=== PATIENT | female | born 1960 | race Caucasian/White ===

== ENCOUNTER 2023-05-14 20:24 | Emergency (ER) | payer MEDICARE ==
--- OUTSIDE RECORDS SUMMARY | 2023-05-14 20:28 | XMS REPORT | Continuity of Care Document ---
:1960 Author Organization [facility] t Address [address] [facility]. [address] [place] [address] Care Team Providers Name Role Phone HEMALATHA ARNOLD Primary Care Physician Unavailable SHELLY GUILLEN Attending Clinician Unavailable Gonzales Rosario Attending Clinician Unavailable Ken Moctezuma MA Attending Clinician Unavailable Ariadna Rao MD Attending Clinician Alon Fisher MD Attending Clinician Bernie Car Attending Clinician Morelia Cui MA Attending Clinician Unavailable Mariano Jones Attending Clinician Catalina BA, Hemalatha Simpson Attending Clinician Jessica Galindo MA Attending Clinician Unavailable Chaim ENCINAS, Sharon Akbar Attending Clinician Siena BA, Anjali Attending Clinician Mathew RADFORD, Jennifer Attending Clinician Unavailable Gabby BA, Anjelica Lee Attending Clinician [phone] Timothy Amador Attending Clinician Nikki BA, Oscar Attending Clinician Jacquelin Bower Attending Clinician Unavailable Jacquelin Horner Attending Clinician Hunstar_Laura Attending Clinician Unavailable Felipa BA, Fabian Loya Attending Clinician [phone] Kenny TOMBSTONE ERECTOR HELPER, Becky Vance Attending Clinician [phone] ANJELICA ART Attending Clinician Unavailable Provider, Yael Vallecillo Attending Clinician Unavailable JANNETTE TODD Attending Clinician Unavailable DELORIS SAMANIEGO Attending Clinician Unavailable GURVINDER BEVERLY Attending Clinician Unavailable Ajibade_O_AH Attending Clinician Unavailable SHELLY GUILLEN Admitting Clinician Unavailable Physician, No Primary or Family Admitting Clinician Unavaila ARIADNA Glez Admitting Clinician Unavailable Hunt_A Admitting Clinician Unavailable GURVINDER BEVERLY Admitting Clinician Unavailable Ajibade_O_AH Admitting Clinician Unavailable Payers Payer Name Policy Type Policy Number Effective Date Expiration Date S ivana [employer] [place] [id number] 2019 CLASSIC/VALUE 00:00:00 REPLACED BY [facility] [id number] 2022 (MEDICARE 00:00:00 REPLACEMENT HMO) [place] OF [place] - [id number] [place] (MEDICARE 00:00:00 REPLACEMENT/[place] GE - HMO) Problems Condition Condition Condition Status Onset Resolution Last Treating Co mments Source Name Details Category Date Date Treatment Clinician Date Lumbar Lumbar Disease Active 2022-06 [facility]i spondylosi spondylosi 0-06 st s s 00:00: Hospita 00 l Acquired Acquired Disease Active Metho di hypothyroi hypothyroi 02-13 st dism dism 00:00: Hospita 00 l Other Other Disease Active Methodi spondylosi spondylosi [address] st s with s with 00:00: Hospita radiculopa radiculopa 00 l thy, thy, lumbar lumbar region region Subclinica Subclinica Disease Active 2021-06 Overview : Methodi l l 0-[address] hypothyroi hypothyroi 00:00: g of this Hospita dism dism 00 note l might be different from the original. TSH elevated, low normal free t4; normalT3 and TPO ab negative Mixed Mixed Disease Active Methodi hyperlipid hyperlipid - st emia emia 00:00: Hospita 00 l Anterolist Anterolist Disease Active Overview : Methodi hesis of hesis of 3- Formattin [facility] lumbar lumbar 00:00: g of this Hospita spine spine 00 note l might be different from the original. on xray trace grade 1 of L3 on L4 Epidermal Epidermal Disease Active 2017-06 Overview: Methodi inclusion inclusion 07-22 Formatt[address] s t cyst cyst 00:00: g of this Hospita 00 note l might be different from the original. right buttock; s/p excision 8 Encounter Encounter Disease Active 2017-06 Overview: Methodi for for 0-[address] screening screening 00:00: g of this H ospita for for 00 note l malignant malignant might be neoplasm neoplasm different of colon of colon from the original. Formattin g of this note might be different from the original. Added automatic ally from request for surgery [id number] matting of this note might be different from the original. Added automatic ally from request for surgery [id number] History of History of Disease Active 2017-06 Overview : Methodi colon colon 0-[address] polyps polyps 00:00: g of this Hospita 00 note l might be different from the original. Formattin g of this note might be different from the original. Added automatic ally from request for surgery [id number] Obesity Obesity Disease Active Methodi (BMI (BMI 7-11 st 30-39.9) 30-39.9) 00:00: Hospit a 00 l SBO (small SBO (small Disease Active 2015-06 Overview : Methodi bowel bowel 1-[address] obstructio obstructio 00:00: g of this Hospita n) n) 00 note l might be different from the original. Overview: hospitali zed at [facility] Mucinous Mucinous Disease Active Metho di cystadenom cystadenom 2-02 st a of a of 00:00: Hospita ovary, ovary, 00 l left left Hip pain Hip pain Disease Active Metho di 30 st 00:00: Hospita 00 l Cataracts, Cataracts, Disease Active 2013-06 M ethodi bilateral bilateral 0-13 st 00:00: Hospita 00 l Tubular Tubular Disease Active Overview: Meth alvina adenoma of adenoma of 7-[address] colon colon 00:00: g of this Hospita 00 note l might be different from the original. Overview: on colonosco py DJD DJD Disease Active Overview: Method i (degenerat (degenerat -[address] asaf joint asaf joint 00:00: g of this H ospita disease), disease), 00 note l lumbar lumbar might be different from the original. Overview: on xray Tobacco Tobacco Disease Active Methodi use use 03-22 st 00:00: Hospita 00 l Pulmonary Pulmonary Disease Active Overview: Methodi emphysema emphysema 03-09 Formattin s t 00:00: g of this Hospita 00 note l might be different from the original. Overview: moderate on ct scan at [place] [address] Diagnosis Term Garbage Person Utility CHF CHF Disease Active Overview: Method i (congestiv (congestiv -[address] e heart e heart 00:00: g of this Hospi ta failure) failure) 00 note l might be different from the original. TTE with low EF 45-50% Leiomyoma Leiomyoma Disease Active Overview: Methodi of uterus of uterus 01-29 Formattin s t 00:00: g of this Hospita 00 note l might be different from the original. small fibroid in uterus on usg Chronic Chronic Disease Active Methodi schizoaffe schizoaffe 5-07 st ctive ctive 00:00: Hospita disorder disorder 00 l Abnormal Abnormal Disease Active Overview: Me thodi results of results of 3-[address] thyroid thyroid 00:00: g of this Hospi ta function function 00 note l studies studies might be different from the original. thyroid nuclear scan normal 12/02/08 Symptomati Symptomati Disease Active M ethodi c c 9-08 st menopausal menopausal 00:00: Ho spita or female or female 00 l climacteri climacteri c states c states Depressive Depressive Disease Active Overview : Methodi disorder disorder 03-[address] 00:00: g of this Hospita 00 note l might be different from the original. Overview: ICD10 Diagnosis Term [employer] Utility Hepatitis Hepatitis Disease Active Overview: Methodi C virus C virus 03-[address] infection infection 00:00: g of this H ospita without without 00 note l hepatic hepatic might be coma coma different from the original. Overview: ICD10 Diagnosis Term [employer] Utility Paranoid Paranoid Disease Active Metho di schizophre schizophre [facility] l Bronchitis Bronchitis Disease Active Overview : Methodi Formattin st g of this Hospita note l might be different from the original. [place] chemical [place] and irritates her lungs and sometimes associate d with morning cough Allergies, Adverse Reactions, Alerts Allergy Allergy Status Severity Reaction(s) Onset Inactive Treating Comm ents Source Name Type Date Date Clinician Diphenhy Propensi Active Other (See 2022-06 Full body Methodi dramine ty to Comments) 07-[address] Hcl adverse 00:00: Hospita reaction 00 l s to drug Hydromor Propensi Active Itching 2021-06 Metho di phone ty to 08-01 st adverse 00:00: Hospita reaction 00 l s to drug FISH Drug Active N/V Univers CONTAINI Class - ity of NG 00:00: [place] PRODUCTS 00 [facility] SHELLFIS DRUG Active N/V Univers H INGREDI 12-15 ity of DERIVED 00:00: Medical Branch Fish Propensi Active GI Methodi Containi ty to Intolerance 12-15 st ng adverse 00:00: Hospita Products reaction 00 l s to drug Shellfis Propensi Active GI Says Method i h ty to Intolerance 12-[address] Derived adverse 00:00: [place] Hospita reaction 00 l s to drug HYDROMOR DRUG Active ITCHING Univers PHONE 12-14 ity of (BULK) 00:00: [place] 00 [facility] MORPHINE DRUG Active ITCHING Univers INGREDI 12-14 ity of 00:00: [place] 00 [facility] Morphine Propensi Active Itching Metho di ty to 12-14 st adverse 00:00: Hospita reaction 00 l s to drug ADHESIVE DA Active SV [facility] 2014-06 [facility] TAPE 0-31 [facility] meperidi DA Active SV 2014-06 [facility] ne HCl 0-25 [facility] hydrocod DA Active [place] 2014-06 [facility] one bit 0-25 [facility] 00:[facility]: d [facility] propoxyp DA Active SV 2014-06 [facility] hene HCl 0-25 [facility] 00:[facility]: d [facility] phenytoi DA Active SV 2014-06 [facility] n sodium 0-25 [facility] 00:00: d 00 [facility] codeine DA Active [place] 2014-06 [facility] 0-25 [place] 00:00: d 00 [facility] risperid DA Active SV 2014-06 [facility] one 0-25 [facility] 00:00: d 00 [facility] meperidi DA Active SV THROAT 2014-06 [facility] ne HCl SWELLS 0-25 [facility] 00:00: d 00 [facility] hydrocod DA Active [place] ITCHING 2014-06 [facility] one bit 0-25 [facility] 00:00: d 00 [facility] propoxyp DA Active SV RUN HIGH 2014-06 [facility] hene HCl FEVERS 0-25 [facility] 00:[facility]: d [facility] phenytoi DA Active SV THROAT 2014-06 [facility] n sodium SWELLS 0-25 [facility] 00:00: d 00 [facility] codeine DA Active [place] ITCHING 2014-06 [facility] 0-25 [facility] 00:[facility]: d 00 [facility] risperid DA Active SV RUN HIGH 2014-06 [facility] one FEVER 0-25 [facility] 00:[facility]: d [facility] CODEINE DRUG Active Hives 2008-0 Univers INGREDI 4-21 ity of 00:00: [place] 00 [facility] Codeine Propensi Active Hives 2007-0 Methodi ty to 4 st adverse 00:00: Hospita reaction 00 l s to drug HYDROCOD DRUG Active High ITCHING 2006-0 Univers ONE-ACET 1-11 ity of AMINOPHE 00:00: [place] N 00 [facility] Branch Hydrocod Propensi Active Itching 2006-0 "PT Metho di one-Acet ty to 1-[address] aminophe adverse 00:00: SEVERE" Hospit a n reaction 00 l s to drug PROPOXYP DRUG Active Med Rash 2006-0 Univers HENE HCL INGREDI 03-03 ity of 00:00: [place] 00 [facility] MEPERIDI DRUG Active Med Hives 2005-0 Univers NE HCL INGREDI 03-03 ity of 00:00: 00 Medical Branch PHENYTOI DRUG Active Med Anaphylaxis 2005-0 Uni vers N SODIUM INGREDI 03-03 ity of EXTENDED 00:00: [place] 00 [facility] RISPERID DRUG Active Med ITCHING 2005-0 Univers ONE INGREDI 03-03 ity of 00:00: 00 [facility] Branch Meperidi Propensi Active Hives 2005-0 Method i ne Hcl ty to 03-03 st adverse 00:00: Hospita reaction 00 l s to drug Phenytoi Propensi Active Anaphylaxis 2005-0 M ethodi n Sodium ty to 03-03 st Extended adverse 00:00: Hospita reaction 00 l s to drug Propoxyp Propensi Active Rash Method i hene Hcl ty to 03-03 adverse 00:00: Hospita reaction 00 l s to drug Risperid Propensi Active Itching 2005- Metho di one ty to 03-03 adverse 00:00: Hospita reaction 00 l s to drug Family History Family Member Diagnosis Comments Start Date Stop Date Source Natural daughter [facility] father Diabetes [facility] father Heart disease [facility] Natural father Lung cancer [facility] father Mental illness Method [facility] Maternal grandfather Lung cancer [facility] mother Asthma [facility] mother Depression [facility] mother Heart defect [facility] mother Lung cancer [facility] Paternal aunt Cancer [facility] ospital [facility] sister Depression [facility] Social History Social Habit Start Date Stop Date Quantity Comments Source History of tobacco Smokes tobacco [facility] use daily Hospital Sexual orientation Method [facility] Alcohol intake 2023-05-05 2023-05-05 Current Muslim 00:00:00 00:00:00 non-drinker of Hospital alcohol (finding) History of Social 2023-05-05 2023-05-[address] function 00:00:00 00:00:00 Hospital Tobacco use and 2022-10-31 2022-10-31 Smokeless tobacco Me thodist exposure 00:00:00 00:00:00 non-user Hospital Tobacco Comment 2022-10-13 2022-10-13 Started smoke Method ist 00:00:00 00:00:00 frequently at Hospital 16yrs old Sex Assigned At [birth year] F Muslim 00:0000 00:00:00 Hospital Smoking Status Start Date Stop Date Source Smokes tobacco daily 2022-10-31 [facility] Medications Ordered Filled Start Stop Current Ordering Indication Dosage Frequency Signature Comments Components Source Medication Medication Date Date Medication? Clinician (SIG) Name Name venlafaxine 2022-06 Yes 150mg Take 2 Met hodi XR 1-[address] (EFFEXOR-XR 14:30: (150 mg Hos alfred ) 75 MG 24 36 total) by l hr capsule mouth. OLANZapine 2022-06 Yes 7.5mg QD Take 1.5 Me thodi (ZYPREXA) 5 1-[address] MG tablet 14:30: (7.5 mg Hospi ta 36 total) by l mouth nightly. venlafaxine 2022-06 Yes 150mg QD Take 1 Met hodi XR 1-[address] (EFFEXOR-XR 14:30: (150 mg Hos alfred ) 150 MG 24 36 total) by l hr capsule mouth daily. HYDROXYZINE 2022-06 No Take by Me thodi PAMOATE 0-25 10-[address] ORAL 11:15: 00:00 Hospita 01 :00 l albuterol 2022-06 Yes [id number] 2{puff} Q6H Inhale 2 Methodi (Ventolin 0-[address] HFA) 90 00:00: every 6 Hospita mcg/actuati 00 (six) l on inhaler hours as needed for wheezing. loratadine 2022-06- Yes [id number] 10mg QD Take 1 Methodi (Claritin) 0-11 10-11 tablet (10 st 10 mg 00:00: 04:59 mg total) Hospit a tablet 00 :00 by mouth l daily. Otc pregabalin 2022-06- No 25mg Q.5D TAKE ONE Me thodi (LYRICA) 25 0-10 10-17 (1) st MG capsule 00:00: 00:00 CAPSULE(S) Hospita 00 :00 BY MOUTH l TWICE A DAY. Unithroid Yes [id number] 100ug QD Take 1 Methodi 100 mcg 8-[address] tablet 00:00: (100 mcg Hospita 00 total) by l mouth daily. Brand necessary pregabalin 2022- No 25mg Q.5D Take 1 Meth alvina (Lyrica) 25 6-13 07-[address] MG capsule 00:00: 04:59 (25 mg Hosp kyle 00 :00 total) by l mouth 2 (two) times a day for 30 days. pregabalin 2022- No 100mg Q.5D Take 1 Met hodi (Lyrica) 5-08 06-[address] 100 MG 00:00: 00:00 (100 mg Hospita capsule 00 :00 total) by l mouth 2 (two) times a day for 30 days. lidocaine 2022- No 1{patch QD Place 1 M ethodi (LIDODERM) 10-20 } patch on st 5 % 00:00: 04:59 the skin Hospita 00 :00 daily for l 30 days. Remove & Discard patch within 12 hours or as directed by levothyroxi 2022- No [id number] 25ug QD Take 1 Methodi ne 3-29 08-30 tablet (25 st (SYNTHROID) 00:00: 00:00 mcg total) Hospita 25 mcg 00 :00 by mouth l tablet daily. levothyroxi 2021-06- No [id number] 25ug QD Take 1 Methodi ne 1-07 03-29 tablet (25 st (SYNTHROID) 00:00: 00:00 mcg total) Hospita 25 mcg 00 :00 by mouth l tablet daily. meloxicam 2021-06 Yes [id number] 7.5mg QD Take 1 Methodi (MOBIC) 7.5 0-[address] mg tablet 00:00: (7.5 mg Hospi ta 00 total) by l mouth daily. amitriptyli 2022- No [id number] 25mg QD TAKE 1 Methodi ne (ELAVIL) 6-18 10-24 TABLET (25 s t 25 MG 00:00: 00:00 MG TOTAL) Hospit a tablet 00 :00 BY MOUTH l NIGHTLY. diclofenac 2022- No [id number] 2g Q.25D Apply 2 g Methodi (Voltaren) 3-22 06-[address] 1 % gel 00:00: 00:00 4 (four) Hospi ta 00 :00 times a l day as needed (left lower back pain). lactulose 2020-06 Yes [id number] 20g Q.[id number] Take 30 mL Methodi (CHRONULAC) 0-19 [id number] (20 g s t 10 gram/15 00:00: 3D total) by Ho spita mL solution 00 mouth 3 l (three) times a day as needed (constipat ion). albuterol 2022- No [id number] 2{puff} Q6H Inhale 2 Methodi (Ventolin 4-07 08-[address] HFA) 90 00:00: 00:00 every 6 Hospit a mcg/actuati 00 :00 (six) l on inhaler hours as needed for wheezing. ipratropium Yes [id number] 3mL Q6H M ethodi -albuterol 7-15 st (DUO-NEB) 20:50: Hospita 0.5-2.5 00 l mg/3 mL nebulizer solution 3 mL divalproex 2017-06 Yes 250mg Q.5D 1 tablet Me thodi (DEPAKOTE) 1-13 ([address] 250 MG EC 00:00: total) 2 Hosp kyle tablet 00 (two) l times a day. Taking 2 pill at night traZODone Yes 100mg Take 2 Metho di (DESYREL) 5-[address] 50 MG 00:00: (100 mg Hospita tablet 00 total) by l mouth. Immunizations Ordered Immunization Filled Immunization Date Status Commen ts Source Name Name Influenza Trivalent Unknown Completed [facility] Influenza, Unknown Completed [facility] Pneumococcal Unknown Completed Muslim Conjugate 13-Valent Hospi mauro Vital Signs Vital Name Observation Time Observation Value Comments Source Systolic blood 2023-05-02 13:51:00 155 mm[Hg] Method ist Hospital pressure Diastolic blood 2023-05-02 13:51:00 74 mm[Hg] [facility] Hospital pressure Heart rate 2023-05-02 13:51:00 78 /min Methodis t Hospital Respiratory rate 2023-05-02 13:51:00 22 /min Meth odist Hospital Oxygen saturation in 2023-05-02 13:51:00 99 /min [facility] Arterial blood by Pulse oximetry Body temperature 2023-05-02 12:21:00 36.78 Irina Meth [facility] Body height 2023-05-02 12:21:00 157.5 cm [facility] Body weight 2023-05-02 12:21:00 86.864 kg [facility] BMI 2023-05-02 12:21:00 35.03 kg/m2 [facility] Procedures Procedure Date / Time Performing Clinician Source Performed OR [place] < 1 HOUR 2023-05-02 13:28:00 [facility], 2023-05-02 [facility] LUMBAR OR SACRAL, SINGLE LEVEL OR FL < 1 HOUR 2023-04-18 15:51:00 [facility] BLOCK, FACET JOINT, 2023-04-18 15:36:00 [facility] SPINE, LUMBAR OR SACRAL, SINGLE LEVEL CT HEAD WO CONTRAST 2023-03-16 20:05:[address] [facility] [address] CARDIAC CALCIUM SCORE 2023-03-16 19:20:00 [facility] US CAROTID DUPLEX 2023-03-16 18:27:00 [facility] BILATERAL CV HOLTER MONITOR GREATER 2023-03-15 00:00:00 [facility] THAN 48 HOUR ECG 12-LEAD 2023-03-02 16:21:55 [facility] LIPID PANEL 2023-02-13 16:21:00 [facility] THYROID STIMULATING 2023-02-13 16:21:00 [facility] HORMONE T4, FREE 2023-02-13 16:21:00 [facility] OR FL < 1 HOUR 2022-12-06 13:27:00 [facility] INJECTION, EPIDURAL, 2022-12-06 13:18:00 [facility] SPINE, LUMBAR, TRANSFORAMINAL APPROACH XR SPINE SCOLIOSIS 2-3 2022-10-31 16:19:55 [place], [facility]se[facility] VIEWS CBC WITH PLATELET AND 2022-10-11 20:54:00 [facility] DIFFERENTIAL COMPREHENSIVE METABOLIC 2022-10-11 20:54:00 [facility], [facility] PANEL LIPID PANEL 2022-10-11 20:54:00 [facility], [facility] THYROID STIMULATING 2022-10-11 20:54:00 [facility] HORMONE T4, FREE 2022-10-11 20:54:00 [facility] ESTIMATED GFR 2022-10-11 20:54:00 [facility], [facility] ECG 12-LEAD 2022-10-11 20:42:52 [facility], [facility] OR FL < 1 HOUR 2022-09-06 12:52:00 [facility], [facility] INJECTION, SPINE, LUMBAR, 2022-09-06 12:44:00 Colmenter, [facility] EPIDURAL, INTERLAMINAR APPROACH OR FL < 1 HOUR 2022-05-31 14:45:00 Colmenter, [facility] INJECTION, SPINE, LUMBAR, 2022-05-31 14:33:00 Col[facility], [facility] EPIDURAL, INTERLAMINAR APPROACH ECG 12-LEAD 2022-05-31 13:49:01 Fabian Leo [facility] Plan of Care Planned Activity Planned Date Details Comments Source Future Scheduled 2023-05-12 Screening for Muslim Test 04:57:46 malignant neoplasm of Hospit al colon (procedure) [code = 038021169] Future Scheduled 2023-05-12 Screening for Muslim Test 04:57:46 malignant neoplasm of Hospit al colon (procedure) [code = 186599541] Future Scheduled 2023-05-12 Screening for Muslim Test 04:57:46 malignant neoplasm of Hospit al colon (procedure) [code = 794582846] Future Scheduled 2023-05-12 COVID-19 VACCINE (#1) [facility]ist Test 04:57:46 [code = COVID-19 Hospital VACCINE (#1)] Future Scheduled 2023-05-12 BREAST CANCER Muslim Test 04:57:46 SCREENING [code = Hospital BREAST CANCER SCREENING] Future Scheduled 2023-05-12 Pneumococcal Vaccine: Me thodist Test 04:57:46 Pediatrics (0 to 5 Hospital Years) and At-Risk Patients (6 to 64 Years) (2 - PPSV23 or PCV20) [code = Pneumococcal Vaccine: Pediatrics (0 to 5 Years) and At-Risk Patients (6 to 64 Years) (2 - PPSV23 or PCV20)] Future Scheduled 2023-05-12 HEPATITIS B VACCINES Met hodist Test 04:57:46 (1 of 3 - Risk 3-dose Hospit al series) [code = HEPATITIS B VACCINES (1 of 3 - Risk 3-dose series)] Future Scheduled 2023-05-12 Screening for Muslim Test 04:57:46 malignant neoplasm of Hospit al colon (procedure) [code = 221204635] Future Scheduled 2023-05-12 Screening for Muslim Test 04:57:46 malignant neoplasm of Hospit al colon (procedure) [code = 930865355] Future Scheduled 2023-05-12 Screening for Muslim Test 04:57:46 malignant neoplasm of Hospit al cervix (procedure) [code = 146637598] Future Scheduled 2023-05-12 SHINGLES VACCINES (1 Postponed from M ethodist Test 04:57:46 of 2) [code = 2010 Hospital SHINGLES VACCINES (1 (Patient of 2)] Refused) Future Scheduled 2023-05-12 INFLUENZA VACCINE Postponed from Meth odist Test 04:57:46 (#1) [code = 02/24/2023 Hospital INFLUENZA VACCINE (Patient (#1)] Refused) Future Appointment 2023-05-16 Ariadna Rao MD, Muslim 10:49:[address] [place] [address] Hospit [address] [place] [address] Future Appointment 2023-05-16 Ariadna Rao MD, Muslim 10:49:[address] [place] [address] Hospit [address] [place] [address] Procedure 2023-05-16 RADIOFREQUENCY Muslim 16:49:00 ABLATION,LUMBAR Hospital Encounters Start End Encounter Admission Attending Care Care Encounter Source Date/Time Date/Time Type Type Clinicians Facility Department ID 2021-04-25 Outpatient R [facility] FILI [id number] Univers 18:13:[address] [facility] [place] 2021-04-23 Emergency [facility] [id number] Univers 11:06:[address] [facility] [place] 2021-04-23 Emergency [facility] [id number] Univers 05:22:53 [facility] 2020-08-04 Inpatient ALEXYS Roasrio [facility] [id number] [facility] 14:31:[address] 2023-05-03 2023-05-03 Telephone Rhianna, 1.2.840.1 [id number] Methodi 00:00:00 00:00:[id number] 3.430.2.7 Hospit a .3.376375 l .8 2023-05-02 2023-05-02 Hospital Colmenter, 1.2.840.1 [id number] Methodi 06:05:00 09:40:00 Encounter Ariadna [id number] 3.430.2.7 Hospit a .3.794328 l .8 2023-05-02 2023-05-02 Surgery Colmenter, 1.2.840.1 [id number] Methodi 07:15:00 07:34:[id number] 3.430.2.7 Hospit a .3.486214 l .8 2023-05-02 2023-05-02 Anesthesia Alon Fisher W. 1.2.840.1 [id number] Methodi 07:13:00 07:31:00 Event Bernie Car My Angeline [id number] 3.430.2.7 Hospit a .3.980660 l .8 2023-05-02 2023-05-[address] [facility] 021 [id number] Wray 00:00:00 00:00:[address] ARIADNA [address] 2023-04-19 2023-04-19 Telephone Basilia, 1.2.840.1 [id number] Methodi 00:00:00 00:00:[id number] 3.430.2.7 Hospit a .3.733894 l .8 2023-04-18 2023-04-18 Hospital Colmenter, 1.2.840.1 [id number] Methodi 09:02:00 11:15:00 Encounter Ariadna [id number] 3.430.2.7 Hospit a .3.146173 l .8 2023-04-18 2023-04-18 Surgery Colmenter, 1.2.840.1 [id number] 872 [id number] Methodi 10:41:00 11:00:[address] 3.430.2.7 Hospit a .3.312249 l .8 2023-04-18 2023-04-18 Anesthesia Karen, 1.2.840.1 [id number] 21 [id number] Methodi 10:36:00 10:53:[address] Mariano 26986.1.[address] Ibll 3.430.2.7 Hospit a .3.028802 l .8 2023-04-18 2023-04-[address] [facility] [place] [id number] 2099 [id number] Wray 00:00:00 00:00:00 ARIADNA [address] 2023-04-05 2023-04-05 Telemedici BelcherBrooke, 1.2.840.1 [id number] Methodi 11:20:00 13:09:16 césar Simpson 44858.1.[address] 3.430.2.7 Hospit a .3.635787 l .8 2023-04-05 2023-04-05 [facility] 2099 [id number] Wray 00:00:00 00:00:00 HEMALATHA [address] 2023-04-04 2023-04-04 Refill Colmenter, 1.2.840.1 [id number] 765 [id number] Methodi 00:00:00 00:00:[address] 3.430.2.7 Hospit a .3.835445 l .8 2023-03-31 2023-03-31 Prep for Josie, 1.2.840.1 [id number] 13373 Methodi 00:00:00 00:00:00 Surgery Jessica 74691.1.[address] 3.430.2.7 Hospit a .3.467197 l .8 2023-03-30 2023-03-30 Office Rucker, 1.2.840.1 [id number] 0502 Methodi 13:30:00 15:12:21 Visit Sharon Akbar 64670.1.1 879 s t 3.430.2.7 Hospit a .3.083076 l .8 2023-03-30 2023-03-30 Outpatient [facility] [id number] Wray 00:00:00 00:00:[address] 2023-03-25 2023-03-25 [facility], 1.2.840.1 [id number] 21 [id number] Methodi 00:00:00 00:00:00 Only Ahmed 04428.1.[address] 3.430.2.7 Hospit a .3.768871 l .8 2023-03-16 2023-03-16 [facility], 1.2.840.1 [id number] 2 [id number] Methodi 12:31:34 23:59:00 Encounter Ahmed 04933.1.[address] 3.430.2.7 Hospit a .3.917847 l .8 2023-03-16 2023-03-16 [facility], 1.2.840.1 [id number] 2 [id number] Methodi 12:31:03 23:59:00 Encounter Ahmed 01883.1.[address] 3.430.2.7 Hospit a .3.377746 l .8 2023-03-16 2023-03-16 [facility], 1.2.840.1 [id number] 2 [id number] Methodi 12:28:51 12:30:00 Encounter Ahmed 66876.1.[address] 3.430.2.7 Hospit a .3.694185 l .8 2023-03-16 2023-03-16 Outpatient SIENA, [facility] 170 [id number] Wray 00:00:00 00:00:00 AHMED [address] 2023-03-16 2023-03-16 Outpatient SIENA, [facility] 642 [id number] Wray 00:00:00 00:00:00 AHMED [address] 2023-03-16 2023-03-16 Outpatient SIENA, [facility] 871 [id number] Wray 00:00:00 00:00:00 AHMED [address] 2023-03-15 2023-03-15 Orders Siena, 1.2.840.1 [id number] 21 [id number] Methodi 00:00:00 00:00:00 Only Ahmed 88976.1.[address] 3.430.2.7 Hospit a .3.128788 l .8 2023-03-02 2023-03-02 Office Siena, 1.2.840.1 [id number] 21 [id number] Methodi 11:00:00 12:19:09 Visit Ahmed 21384.1.[address] 3.430.2.7 Hospit a .3.960292 l .8 2023-03-02 2023-03-02 Outpatient SIENA, [facility] 861 [id number] Wray 00:00:00 00:00:00 AHMED [address] 2023-02-22 2023-02-22 Telemedici Catalina, 1.2.840.1 [id number] Methodi 08:00:00 08:34:19 césar Simpson 69804.1.[address] 3.430.2.7 Hospit a .3.280548 l .8 2023-02-22 2023-02-22 Outpatient [facility] [id number] 170 Wray 00:00:00 00:00:[address] 2023-01-30 2023-01-30 Braydon Carmona, 1.2.840.1 [id number] 2100 [id number] Methodi 00:00:00 00:00:[address] 3.430.2.7 Hospit a .3.569454 l .8 2023-01-26 2023-01-26 Telephone Catalina, 1.2.840.1 [id number] 2 [id number] Methodi 00:00:00 00:00:00 Hemalatha Simpson 56724.1.[address] 3.430.2.7 Hospit a .3.382475 l .8 2023-01-09 2023-01-09 Telephone Mathew, 1.2.840.1 [id number] 2100 [id number] Methodi 00:00:00 00:00:[address] 3.430.2.7 Hospit a .3.541405 l .8 2022-12-06 2022-12-06 Hospital Col[facility]er, 1.2.840.1 [id number] 21 [id number] Methodi 07:15:00 09:10:00 Encounter Ariadna 13010.1.[address] 3.430.2.7 Hospit a .3.023384 l .8 2022-12-06 2022-12-06 Surgery Colmenter, 1.2.840.1 [id number] 732 [id number] Methodi 08:14:00 08:38:[address] 3.430.2.7 Hospit a .3.629037 l .8 2022-12-06 2022-12-06 Anesthesia McInroe, 1.2.840.1 [id number] 21 [id number] Methodi 08:18:00 08:30:00 Event Anjelica 01934.1.[address] Jesus 3.430.2.7 Hospit a .3.082003 l .8 2022-12-06 2022-12-06 Orders Colmenter, 1.2.840.1 [id number] 023 [id number] Methodi 00:00:00 00:00:00 Only Ariadna 88578.1.[address] 3.430.2.7 Hospit a .3.892683 l .8 2022-12-06 2022-12-06 Outpatient COLMENTER, [facility] 021 2099 [id number] Wray 00:00:00 00:00:00 ARIADNA [address] 2022-11-28 2022-11-28 Prep for Galindo, 1.2.840.1 [id number] 82129 63040 Methodi 00:00:00 00:00:00 Surgery Jessica 96200.1.[address] 3.430.2.7 Hospit a .3.809049 l .8 2022-11-07 2022-11-07 Orders Villyard, 1.2.840.1 [id number] 2099 [id number] Methodi 00:00:00 00:00:00 Only Morelia 99033.1.[address] 3.430.2.7 Hospit a .3.161918 l .8 2022-10-31 2022-10-31 Office Edrebecca, 1.2.840.1 [id number] 2100 [id number] Methodi 11:00:00 14:33:59 Visit Eseohe 34125.1.[address] 3.430.2.7 Hospit a .3.609468 l .8 2022-10-31 2022-10-31 Outpatient [facility] [id number] Wray 00:00:00 00:00:[address] 2022-10-31 2022-10-31 Refill José, 1.2.840.1 [id number] 2100 [id number] Methodi 00:00:00 00:00:[address] 3.430.2.7 Hospit a .3.134097 l .8 2022-10-31 2022-10-31 Travel 1.2.840.1 1.2.190.365 5767 [id number] Methodi 00:00:00 00:00:[address] 3.430.2.7 0.2.7.3.698 Ho spita .3.964622 084.8 l .8 2022-10-31 2022-10-31 Outpatient [facility] [id number] Wray 00:00:00 00:00:[address] 2022-10-31 2022-10-31 Outpatient [facility] [id number] Wray 00:00:00 00:00:[address] 2022 2022 Telephone Nikki, 1.2.840.1 [id number] 2099 [id number] Methodi 00:00:00 00:00:[address] 3.430.2.7 Hospit a .3.590970 l .8 2022-10-20 2022-10-20 Office Colmenter, 1.2.840.1 [id number] 446 [id number] Methodi 10:20:00 10:59:37 Visit Ariadna 07153.1.[address] 3.430.2.7 Hospit a .3.999359 l .8 2022-10-20 2022-10-20 Telephone Catalina, 1.2.840.1 [id number] 2 [id number] Methodi 00:00:00 00:00:[address] 3.430.2.7 Hospit a .3.290634 l .8 2022-10-20 2022-10-20 Travel 1.2.840.1 1.2.894.678 1992 [id number] Methodi 00:00:00 00:00:[address] 3.430.2.7 0.2.7.3.698 Ho spita .3.802553 084.8 l .8 2022-10-20 2022-10-20 [facility] 2100 [id number] Wray 00:00:00 00:00:00 ARIADNA [address] 2022-10-17 2022-10-17 Telephone Bower, 1.2.840.1 [id number] 2099 [id number] Methodi 00:00:00 00:00:[address] 3.430.2.7 Hospit a .3.114673 l .8 2022-10-11 2022-10-11 Lab Catalina, 1.2.840.1 [id number] 718 [id number] Methodi 15:55:00 16:00:[address] 3.430.2.7 Hospit a .3.664364 l .8 2022-10-11 2022-10-11 Office Catalina, 1.2.840.1 [id number] 535 [id number] Methodi 14:20:00 15:51:33 Visit Hemalatha Meneses. 11210.1.[address] 3.430.2.7 Hospit a .3.356668 l .8 2022-10-11 2022-10-11 [facility] 2100 [id number] Wray 00:00:00 00:00:00 HEMALATHA [address] 2022-10-11 2022-10-11 [facility] 2100 [id number] Wray 00:00:00 00:00:00 HEMALATHA [address] 2022-09-27 2022-09-27 Travel 1.2.840.1 1.2.782.727 9846 [id number] Methodi 00:00:00 00:00:[address] 3.430.2.7 0.2.7.3.698 Ho spita .3.051544 084.8 l .8 2022-09-21 2022-09-21 Luis Carmona, 1.2.840.1 [id number] 324189 9537 Methodi 00:00:00 00:00:00 Only Jennifer 66815.1.[address] 3.430.2.7 Hospit a .3.426258 l .8 2022-09-19 2022-09-19 MARISOL Horner 2.16.840. 2.16.840.1. CLACXJJUZF Devoted 18:00:00 19:00:00 1.864241. 723404.4.6. W48 Medical 4.6.13124 [id number] 16119 2022-09-14 2022-09-14 Outpatient Hunt_A [facility] 702871- 202 Devoted 00:00:00 00:00:00 90226 Medica l Group 2022-09-14 2022-09-14 Outpatient Hunt_A [facility] 898172- 202 Devoted 00:00:00 00:00:00 00349 Medica l Group 2022-09-06 2022-09-06 Hospital Colmenter, 1.2.840.1 [id number] 21 [id number] Methodi 06:11:00 08:35:00 Encounter Ariadna 92459.1.[address] 3.430.2.7 Hospit a .3.649329 l .8 2022-09-06 2022-09-06 Anesthesia Felipa, 1.2.840.1 [id number] 21 [id number] Methodi 07:43:00 07:58:00 Event Christopher 83939.1.[address] Vincenzo 3.430.2.7 Hospit a .3.369958 l .8 2022-09-06 2022-09-06 Surgery Colmenter, 1.2.840.1 [id number] 676 [id number] Methodi 07:37:00 07:57:[address] 3.430.2.7 Hospit a .3.723858 l .8 2022-09-06 2022-09-06 Outpatient COLMENTER, [facility] 021 2100 [id number] Wray 00:00:00 00:00:00 ARIADNA [address] 2022-09-02 2022-09-02 Prep for Galindo, 1.2.840.1 [id number] 81945 89638 Methodi 00:00:00 00:00:00 Surgery Jessica 84462.1.[address] 3.430.2.7 Hospit a .3.128773 l .8 2022-09-02 2022-09-02 [facility] [place], 1.2.840.1 [id number] 21 [id number] Methodi 00:00:00 00:00:[address] 3.430.2.7 Hospit a .3.114123 l .8 2022-08-19 2022-08-19 Outpatient [facility] [place] 807860- 202 Devoted 00:00:00 00:00:00 26726 Medica l Group 2022-08-18 2022-08-18 Office Colmenter, 1.2.840.1 [id number] 155 [id number] Methodi 10:00:00 10:40:31 Visit Ariadna 05841.1.[address] 3.430.2.7 Hospit a .3.364979 l .8 2022-08-18 2022-08-18 Telephone BelcherBrooke, 1.2.840.1 [id number] 2 [id number] Methodi 00:00:00 00:00:00 Hemalatha Simpson 88057.1.[address] 3.430.2.7 Hospit a .3.379555 l .8 2022-08-18 2022-08-[address] [facility], [facility] 2100 [id number] Wray 00:00:00 00:00:00 ARIADNA [address] 2022-07-30 2022-07-30 Outpatient DMG DM [id number]- 202 Devoted 00:00:00 00:00:00 56506 Medica l Group 2022-07-19 2022-07-19 Outpatient DMG DM [id number]- 202 Devoted 00:00:00 00:00:00 60994 Medica l Group 2022-06-21 2022-06-[facility] [id number] 0114 Methodi 15:45:00 15:47:27 Visit Becky 82000.1.[address] [facility] 3.430.2.7 Hospi ta .3.007649 l .8 2022-06-21 2022-06-21 Travel 1.2.840.1 1.2.898.419 5223 [id number] Methodi 00:00:00 00:00:[address] 3.430.2.7 0.2.7.3.698 Ho spita .3.973176 084.8 l .8 2022-06-21 2022-06-21 Outpatient [facility] [id number] Wray 00:00:00 00:00:[address] 2022-05-31 2022-05-31 Hospital [facility], 1.2.840.1 [id number] 21 [id number] Methodi 07:14:00 23:59:00 Encounter Ariadna 82439.1.[address] 3.430.2.7 Hospit a .3.640011 l .8 2022-05-31 2022-05-31 Surgery Colmenter, 1.2.840.1 [id number] 473 [id number] Methodi 08:27:00 08:46:[address] 3.430.2.7 Hospit a .3.241071 l .8 2022-05-31 2022-05-31 Anesthesia Felipa, 1.2.840.1 [id number] 21 [id number] Methodi 08:33:00 08:44:00 Event Christopher 75226.1.[address] Vincenzo 3.430.2.7 Hospit a .3.847748 l .8 2022-05-31 2022-05-31 Outpatient COLMENTER, [facility] 021 2099 [id number] Wray 00:00:00 00:00:00 ARIADNA [address] 2022-05-30 2022-05-30 Refill Catalina, 1.2.840.1 [id number] 081 [id number] Methodi 00:00:00 00:00:[address] 3.430.2.7 Hospit a .3.798586 l .8 2022-05-04 2022-05-04 Outpatient COLMENTER, [facility] 2100 [id number] Wray 00:00:00 00:00:00 AIRADNA [address] 2022-05-04 2022-05-04 Outpatient COLMENTER, [facility] 2100 [id number] Wray 00:00:00 00:00:00 ARIADNA [address] 2022-04-17 2022-04-17 Outpatient DM DMG [id number]- 202 [facility] 00:00:00 00:00:00 37848 Medica l Group 2022-03-09 2022-03-09 [facility] 2100 [id number] Wray 00:00:00 00:00:00 HEMALATHA [address] 2021-09-14 2021-09-14 [facility] 2100 [id number] Wray 00:00:00 00:00:00 HEMALATHA 640 Method i 2021-09-14 2021-09-14 Outpatient STEFAN-EDWARDO, [facility] 2100 [id number] Wray 00:00:00 00:00:00 HEMALATHA 137 Method i 2021-08-09 2021-08-09 Outpatient CATALINA, [facility] 2100 [id number] Wray 00:00:00 00:00:00 HEMALATHA 083 Method i 2021-04-13 2021-04-13 Outpatient [facility] [id number] Wray 00:00:00 00:00:00 266 Method i 2021-02-08 2021-02-08 Outpatient STEFAN-EDWARDO, [facility] 2100 [id number] Wray 00:00:00 00:00:00 HEMALATHA 786 Method i 2021-02-08 2021-02-08 Outpatient RUBENS, [facility] [id number] Wray 00:00:00 00:00:00 ANJELICA 966 Method i 2021-01-06 2021-01-06 Outpatient STEFAN-EDWARDO, [facility] 2100 [id number] Wray 00:00:00 00:00:00 HEMALATHA 516 Method i 2020-11-18 2020-11-18 Outpatient CATALINA, [facility] 2100 [id number] Wray 00:00:00 00:00:00 HEMALATHA 168 Method i 2020-09-30 2020-09-30 Outpatient CATALINA, [facility] 2100 [id number] Wray 00:00:00 00:00:00 HEMALATHA 297 Method i 2020-09-03 2020-09-03 Emergency ER Provider, [facility] [id number] [facility] 23:39:00 23:39:00 Express -[id number] David s Gonzales Zendejas 2020-06-17 2020-06-17 Outpatient CATALINA, [facility] 2100 [id number] Wray 00:00:00 00:00:00 HEMALATHA 000 Method i 2020-03-17 2020-03-17 Outpatient CATALINA, [facility] 2100 [id number] Wray 00:00:00 00:00:00 HEMALATHA 680 Method i 2020-03-03 2020-03-03 Outpatient Tiffanie TODD, [facility] [id number] Univers 09:30:00 09:30:00 JANNETTE albarran o f [facility] 2020-01-02 2020-01-02 Outpatient CATALINA [facility] 2099 [id number] Wray 00:00:00 00:00:00 HEMALATHA [address] 2019-11-22 2019-11-22 Outpatient [facility] [id number] Wray 00:00:00 00:00:[address] 2019-11-13 2019-11-13 Outpatient R ADEN [facility] [id number] Univers 13:20:00 13:20:00 [facility] 2019-11-11 2019-11-11 [facility] 024 [id number] Univers 14:30:00 14:30:[address] [facility] [place] [place] 2019-09-25 2019-09-25 Outpatient [facility] [id number] Univers 10:00:00 10:00:[address] [facility] [place] [place] 2019-09-09 2019-09-09 Outpatient R SIRIA [facility] [id number] Univers 12:59:20 23:59:00 [facility] 2019-08-14 2019-08-14 Outpatient Ajibade_O_A VFP VFP 795 [id number] [facility] 07:21:00 07:21:00 H 58092 Family Practic e 2019-08-14 2019-08-14 Outpatient Ajibade_O_A VFP VFP 795 963-202 [facility] 07:21:00 07:21:00 H 11151 Family Practic e 2019-05-27 2019-05-27 Outpatient CATALINA [facility] 2099 [id number] Wray 00:00:00 00:00:00 HEMALATHA [address] Results Test Description Test Time Test Comments Results Result Comments Source ECG 12 lead 2023-03-02 16:54:39 Test Item Value Reference Range Interpretation Comme nts Ventricular rate (test code = 253) 76 Atrial rate (test code = 255) 76 HI interval (test code = 266) 152 QRSD interval (test code = 260) 74 QT interval (test code = 264) 382 QTC interval (test code = 265) 429 P axis 1 (test code = 267) 57 QRS axis 1 (test code = 268) 48 T wave axis (test code = 270) 86 EKG impression (test code = 273) Normal sinus rhythm-Cannot rule ou t Anterior infarct (cited on or before 31-MAY-2022)-Abnormal ECG-In automated comparison with ECG of 11-OCT-2022 15:42,-Questionable change in QRS axis- [facility] [id number] 03:46:00 Test Item Value Reference Interpretation Comments Range Cholesterol, total 195 mg/dL <=200 (test code = 2093-3) HDL cholesterol 36 mg/dL See_Comment L [Automated (test code = 2085-9) message ] The system which generated this result transmitted reference range : > OR = 50. The reference range was not used to interpret this result as normal/abnormal . Triglycerides (test 283 mg/dL <=150 H If a no n-fasting code = 2571-8) specimen was collected, considerrepeat triglyceride testing on a fasting specime nif clinically indicated. Rolf centeno et al. J. of Cl in. Lipidol. 2015;9:129-169. LDL cholesterol 119 mg/dL (calc) H Reference ra nge: calculated (test <100 Desira ble code = 20222-6) range <100 m g/dL for primary prevention; <70 mg/dL for patie nts with CHD or diabetic patien ts with > or = 2 C HD risk factors. L DL-C is now calculat ed using the Jarett-Barraza calculation, wh ich is a validated novel method providing justina r accuracy than t he Friedewald equa tion in the estimati on of LDL-C. Eliz n SS et al. MAO. 2013;310(19): 2988-8810 (http://educati on.Q Employma .BuildDirect /faq/CXM737) Cholesterol/HDL 5.4 See_Comment H [Automated ratio (test code = message] The system 9830-1) which generated this result transmitted reference range : <5.0 (calc). Th e reference range was not used to interpret this result as normal/abnormal . Non-HDL cholesterol 159 See_Comment H For antonella ents with (test code = diabetes plus 1 71231-7) major ASCVD ris k factor, treatin g to a non-HDL-C goa l of <100 mg/dL (LDL -C of <70 mg/dL) i s considered a therapeutic opt ion. [Automated mess age] The system whic h generated this result transmit bean reference range : <130 mg/dL (benjamin c). The reference r timothy was not used to interpret this result as normal/abnormal . DASHAWN (test code = FASTING:NO DASHAWN) FASTING: NO RAC (test code = Performing RAC) Organization Information: Site ID: A Name: [facility] Address: [address] [place] [address] Director: Aroldo Nelson Lab Interpretation Abnormal (test code = 50233-2) [facility]ound[facility], [id number] 03:46:00 Test Item Value Reference Range Interpretation Comments T4, free (test code 1.0 ng/dL 0.8-1.8 = 3024-7) DASHAWN (test code = FASTING:NO FASTING: NO DASHAWN) RAC (test code = Performing Organization RAC) Information: Site ID: [facility] Address: [address] [place] [id number] Director: Aroldo Nelson [facility] MoundThyroid stimulating [id number] 03:46:00 Test Item Value Reference Range Interpretation Comments TSH (test code = 21.42 See_Comment H [Automated 3016-3) message] The system which generated this result transmitted reference range : 0.40 - 4.50 mIU/L. The reference range was not used to interpret this result as normal/abnormal . DASHAWN (test code = FASTING:NO DASHAWN) FASTING: NO RAC (test code = Performing RAC) Organization Information: Site ID: A Name: [facility] Address: [address] [place] [address] Director: Aroldo Nelson Lab Interpretation Abnormal (test code = 54083-7) [facility] MoundXR Knee Lt 4 View STANDARD [facility] BRYANName: JYOTHI VILLALPANDO : 1960 [facility]: JYOTHI VILLALPANDO [employer] Phys: Lavell Pires NP [place] Zendejas [id number] : 1960 Age: 59 SEX:F [phone] Exam Date: 09/04/20 Status: DEP ER Acct: [id number] Loc: ERS Pt Unit #: [id number] Report #: [id number] CC: Lavell Pires NP IMAGING SERVICES REPORT Order # Category/Exam [id number] RAD/XR Knee Lt 4 View STANDARD ([id number]): . Results LEFT KNEE 4 VIEWS: INDICATION: Knee pain. FINDINGS: Joint spaces are normally maintained. No osseous abnormality. IMPRESSION: No acute finding. POS: OFF Reported By: Harshil Lopez MD Electronically Signed Date/Time: 09/04/20 0849 Technologist: TERESA Dictated Date/Time: 09/04/20 0800 Transcribed Naresh e/Time: 09/04/20 0811US Venous Doppler Lt Unilat [facility] BRYChandame: JYOTHI VILLALPANDO : 1960 [facility]: JYOTHI VILLALPANDO [employer] Phys: Lavell Pires NP [place] Zendejas [phone] : 1960 Age: 59 SEX:F [phone] Exam Date: 09/04/20 Status: DEP ER Acct: [id number] Loc: ERS Pt Unit #: [id number] Report #: [id number] CC: Lavell Pires NP ULTRASOUND REPORT Order # Category/Exam [id number] ULT/US Venous Doppler Lt Unilat ([id number]): . Results PRELIMINARY REPORT/DIRECT RADIOLOGY/EMERGENCY AFTER HOURS PROCEDURE: EXAM: US Duplex left Lower Extremity Veins. CLINICAL HISTORY: LLE pain/edema x 1 wk TECHNIQUE: Real-time ultrasound scan of the veins ofthe left lower extremity with color Doppler flow, spectral waveform analysis and compression. COMPARISON: None provided. FINDINGS: DEEP VEINS: The common femoral, femoral, and popliteal veins are echolucent and compressible. Thesevessels demonstrate respiratory variation and augmentation. There is normal color Doppler flow throughout. The visualized calf veins are also patent. SUPERFICIAL VEINS: The visualized greater saphenous vein is patent. SOFT TISSUES: No popliteal fossa cyst or other abnormalities. IMPRESSION: No deep venous thrombosis in the left lower extremity. ELECTRONICALLY SIGNED BY: Evens Luna MD Sep 04, 2020 1:32:52 AM [employer] OPERATOR FINAL REPORT ULTRASOUND DOPPLER DUPLEX VENOUS LEFT LOWER EXTREMITY: DATE: 09/04/2020. HISTORY: 59-year-old female with left lower extremity pain and edema. TECHNIQUE: Grayscale, color-flow, and spectral analysis, of major veins of left lower extremity. FINDINGS: There is demonstration of blood flow with normal compressibility, of the left common femoral, profunda femoral, greater saphenous, femoral, popliteal, and posterior tibial, veins. Agree with preliminaryreport by direct radiology. IMPRESSION: Negative. No deep venous thrombosis of left lower extremity.Transcribed Date/Time: 09/04/2020 7:45 AM Reported By: Avila Gordillo MD Electronically Signed Date/Time: 09/04/20 1336 Technologist: TIEN Dictated Date/Time: 09/04/20 0736 Transcribed Date/Time:
[2023-05-14] MEDS ORDERED: DIAZEPAM 10 MG/2 ML INJ SYRINGE ONE (21:49)
[2023-05-14] MEDS ORDERED: FENTANYL CITR 100 MCG/2 ML ONE (23:05)
[2023-05-14] MEDS ORDERED: ONDANSETRON 4 MG (ODT) TAB ONE (23:06)
--- NOTE | 2023-05-14 23:25 | ER ---
Nurse's Notes [facility] Name: Nidhi Armstrong Age: 62 yrs Sex: Female : 1960 Arrival Date: 05/14/2023 Time: 20:24 Bed 10 Private MD: Diagnosis: Low back pain Presentation: 05/14 21:07 Chief complaint: Patient states: she has been having an increase in pain of her chronic ap3 back pain. patient states she has been in bed all day, unable to get comfortable. patient currently rates her pain as a 10/10 on the pain scale. Coronavirus screen: At this time, the client does not indicate any symptoms associated with coronavirus-19. Ebola Screen: No symptoms or risks identified at this time. Initial Sepsis Screen: Does the patient meet any 2 criteria? No. Patient's initial sepsis screen is negative. Does the patient have a suspected source of infection? No. Patient's initial sepsis screen is negative. Risk Assessment: Do you want to hurt yourself or someone else? Patient reports no desire to harm self or others. Onset of symptoms is unknown. 21:07 Method Of Arrival: Ambulatory ap3 21:07 Acuity: ALINA 4 ap3 Triage Assessment: 21:08 General: Appears uncomfortable, Behavior is calm, cooperative, appropriate for age. ap3 Pain: Complains of pain in low back area. Neuro: Level of Consciousness is awake, alert, obeys commands, Oriented to person, place, time, situation, Appropriate for age. Cardiovascular: Patient's skin is warm and dry. Respiratory: Airway is patent Respiratory effort is even, unlabored, Respiratory pattern is regular, symmetrical. Musculoskeletal: Reports pain in low back area. Historical: - Allergies: 21:05 Codeine; ap3 21:05 Morphine; ap3 21:05 Dilaudid; ap3 21:05 Demerol; ap3 - PMHx: 21:05 Chronic back pain; Chronic obstructive lung disease; ap3 - Immunization history:: Client reports having NOT received the Covid vaccine. - Social history:: Smoking status: Patient reports the use of cigarette tobacco products, cigars. Screenin:08 Abuse screen: Denies threats or abuse. Nutritional screening: No deficits noted. ap3 Tuberculosis screening: No symptoms or risk factors identified. 21:39 [facility] ED Fall Risk Assessment (Adult) Score/Fall Risk Level 0 - 2 = Low Risk. as6 Assessment: 21:38 General: Appears uncomfortable, Behavior is calm, cooperative. Pain: Complains of pain as6 in low back area Is chronic. Neuro: Level of Consciousness is awake, alert, obeys commands, Oriented to person, place, time, situation. Cardiovascular: Capillary refill < 3 seconds Patient's skin is warm and dry. Respiratory: Respiratory effort is even, unlabored, Respiratory pattern is regular, symmetrical. GI: No deficits noted. No signs and/or symptoms were reported involving the gastrointestinal system. : No deficits noted. No signs and/or symptoms were reported regarding the genitourinary system. EENT: No deficits noted. No signs and/or symptoms were reported regarding the EENT system. Derm: Skin is intact, is healthy with good turgor. Musculoskeletal: Reports pain in low back area. Vital Signs: 21:07 Pulse 89; Resp 21; Temp 97.8; Pulse Ox 96% ; Weight 86.64 kg; Pain 10/10; ap3 21:08 BP 129 / 79; ap3 22:58 BP 117 / 63; Pulse 67; Resp 18; Pulse Ox 100% on R/A; Pain 10/10; me1 23:41 BP 138 / 84; Pulse 67; Resp 18; Pulse Ox 100% ; Pain 10/10; me1 21:07 Pain Scale: Adult ap3 22:58 Pain Scale: Adult me1 23:41 Pain Scale: Adult me1 ED Course: 20:28 Patient arrived in ED. jj6 20:31 [facility] sb4 20:31 Jasbir Hall MD is Attending Physician. sb4 21:08 Triage completed. ap3 21:09 Arm band placed on left wrist. ap3 21:39 Bed in low position. Call light in reach. as6 22:49 Halle Bustillo RN is Primary Nurse. me1 23:41 No provider procedures requiring assistance completed. Patient did not have IV access me1 during this emergency room visit. 23:42 Provided Education on: POC. Verbalized understanding. . me1 Administered Medications: 21:37 Drug: Diazepam IM 10 mg IM once Route: IM; Site: right vastus lateralis; as6 22:49 Follow up: Response: No adverse reaction; Pain is unchanged, physician notified me1 22:58 Drug: fentaNYL (PF) IM 100 mcg IM once Route: IM; Site: right gluteus; me1 23:35 Follow up: Response: No adverse reaction; Pain is decreased me1 22:58 Drug: Ondansetron Oral Disintegrating Tablet Oral Disintegrating Tablet 4 mg PO once me1 Route: PO; 23:35 Follow up: Response: No adverse reaction me1 Medication: 21:39 VIS not applicable for this client. as6 Outcome: 23:25 Discharge ordered by MD. perry 23:42 Discharged to home ambulatory, me1 23:42 Condition: stable 23:42 Discharge instructions given to patient, Instructed on discharge instructions, follow up and referral plans. Demonstrated understanding of instructions, follow-up care, 23:42 Patient left the ED. me1 Signatures: Jacquelin Cano RN RN ap3 Florinda Monroyj6 Costa Solorzano RN RN as6 Maritza Olmstead PA-C PAShahnaz sb4 Halle Bustillo RN RN me1
--- NOTE | 2023-05-14 23:25 | EDPHYS ---
Physician Documentation [facility] Name: Nidhi Armstrong Age: 62 yrs Sex: Female : 1960 Arrival Date: 05/14/2023 Time: 20:24 Bed 10 Private MD: ED Physician Jasbir Hall HPI: 05/14 22:56 This 62 yrs old Female presents to ER via Ambulatory with complaints of Low Back Pain. sb4 05/15 02:48 patient reports a long history of low back pain- previously diagnosed with several sb4 ruptured discs, spondylosis, etc. she sees spine surgery and pain management. she is planning to have a spinal procedure in 2 days. she was taken off all of anti inflammatories in preparation. states her pain has been unbearable tonight. Historical: - Allergies: 05/14 21:05 Codeine; ap3 21:05 Morphine; ap3 21:05 Dilaudid; ap3 21:05 Demerol; ap3 - PMHx: 21:05 Chronic back pain; Chronic obstructive lung disease; ap3 - Immunization history:: Client reports having NOT received the Covid vaccine. - Social history:: Smoking status: Patient reports the use of cigarette tobacco products, cigars. ROS: 05/15 02:54 Constitutional: Negative for fever, chills, and weight loss, sb4 Back: Positive for pain at rest, pain with movement, All other systems are negative, Exam: 02:54 Head/Face: Normocephalic, atraumatic. Eyes: Extra-ocular motions intact. Periorbital sb4 areas with no swelling, redness, or edema. ENT: Mucous membranes moist. Cardiovascular: Regular rate and rhythm with a normal S1 and S2. Respiratory: Lungs have equal breath sounds bilaterally, clear to auscultation and percussion. No rales, rhonchi or wheezes noted. No increased work of breathing, no retractions or nasal flaring. Abdomen/GI: Soft, non-tender, no distension. Skin: Warm, dry with normal turgor. Normal color with no rashes, no lesions, and no evidence of cellulitis. MS/ Extremity: Pulses equal, no cyanosis. Neurovascular intact. Full, normal range of motion. Neuro: Awake and alert, GCS 15, oriented to person, place, time, and situation. Motor strength 5/5 in all extremities. Sensory grossly intact. 02:54 Constitutional: The patient appears alert, awake, in obvious pain, 02:54 Back: pain, that is moderate, of the lumbar area, normal spinal alignment noted, CVA tenderness, is absent, vertebral tenderness, is not appreciated, muscle spasm, is not present, Vital Signs: 05/14 21:07 Pulse 89; Resp 21; Temp 97.8; Pulse Ox 96% ; Weight 86.64 kg; Pain 10/10; ap3 21:08 BP 129 / 79; ap3 22:58 BP 117 / 63; Pulse 67; Resp 18; Pulse Ox 100% on R/A; Pain 10/10; me1 23:41 BP 138 / 84; Pulse 67; Resp 18; Pulse Ox 100% ; Pain 10/10; me1 21:07 Pain Scale: Adult ap3 22:58 Pain Scale: Adult me1 23:41 Pain Scale: Adult me1 MDM: 21:10 Patient medically screened. sb4 05/15 02:54 Differential diagnosis: arthritis, strain, fracture, sciatica, contusion, Herniated sb4 disc. Data reviewed: vital signs, nurses notes, and as a result, I will discharge patient. Care significantly affected by the following chronic conditions: Chronic Obstructive Pulmonary Disease. Counseling: I had a detailed discussion with the patient and/or guardian regarding the historical points, exam findings, and any diagnostic results supporting the discharge/admit diagnosis, the presence of at least one elevated blood pressure reading (>120/80) during this emergency department visit, to return to the emergency department if symptoms worsen or persist or if there are any questions or concerns that arise at home. Administered Medications: 05/14 21:37 Drug: Diazepam IM 10 mg IM once Route: IM; Site: right vastus lateralis; as6 22:49 Follow up: Response: No adverse reaction; Pain is unchanged, physician notified me1 22:58 Drug: fentaNYL (PF) IM 100 mcg IM once Route: IM; Site: right gluteus; me1 23:35 Follow up: Response: No adverse reaction; Pain is decreased me1 22:58 Drug: Ondansetron Oral Disintegrating Tablet Oral Disintegrating Tablet 4 mg PO once me1 Route: PO; 23:35 Follow up: Response: No adverse reaction me1 Disposition Summary: 05/14/23 23:25 Discharge Ordered Notes: Location: Home sb4 Problem: an acute exacerbation sb4 Symptoms: have improved sb4 Condition: Stable sb4 Diagnosis - Low back pain sb4 Followup: sb4 - With: Emergency Department - When: As needed - Reason: Trouble breathing, Worsening of condition Forms: - Medication Reconciliation Form sb4 - Thank You Letter sb4 - Antibiotic Education sb4 - Prescription Opioid Use sb4 - Patient Portal Instructions sb4 - Leadership Thank You Letter sb4 Addendum: 05/16/2023 10:37 I was immediately available for consultation during this patient's visit. I did not e c2 personally see the patient or guide the patient's care. . Signatures: Jaqcuelin Cano, RN RN ap3 Costa Solorzano RN RN as6 Maritza Olmstead PA-C PA-C sb4 Halle Bustillo RN RN me1 Jasbir Hall MD MD ec2 Corrections: (The following items were deleted from the chart) 05/15 02:54 02:48 patient reports a long history of low back pain- previously diagnosed with sb4 several ruptured discs, spondylosis, etc. she sees spine surgery and pain management. she is planning to have a spinal procedure in 2 days. she was taken off all of. sb4
[2023-05-15 00:14] VITALS: TEMP 97.8
[2023-05-15 00:17] VITALS: O2SAT 100
[2023-05-15 00:18] VITALS: BP 138/84
== END 2023-05-14 23:42 | disposition home or self-care (01) ==
LOC: ER 20:24
DX: M54.50 Low back pain, unspecified (principal); G89.29 Other chronic pain; Z72.0 Tobacco use; Z88.5 Allergy status to narcotic agent; Z88.8 Allergy status to other drugs, medicaments and biological substances
CPT/HCPCS: 96372; 99284; Q0162; J3360; J3010

== ENCOUNTER 2023-11-29 07:59 | Day surgery (SDC) | payer MEDICARE ==
[2023-11-29] MEDS ORDERED: MIDAZOLAM HCL 2 MG/2 ML INJ ONE (08:07)
[2023-11-29] MEDS ORDERED: propofoL 200 MG/20 ML VIAL IV ONE (08:07)
[2023-11-29] MEDS ORDERED: LIDOCAINE 2% MPF 5 ML VIAL ONE (08:07)
[2023-11-29] MEDS ORDERED: ONDANSETRON 4 MG/2 ML VIAL ONE (08:07)
[2023-11-29] MEDS ORDERED: FENTANYL CITR 100 MCG/2 ML ONE (08:08)
--- NOTE | 2023-11-29 08:33 | RAD REPORT ---
EXAM DESCRIPTION: RAD - Chest Pa And Lat (2 Views) - 11/29/2023 8:26 am CLINICAL HISTORY: PREPROCEDURE SCREENING. History of COPD COMPARISON: No comparisons TECHNIQUE: PA and lateral views of the chest were obtained. FINDINGS: The lungs are clear. Diffuse hyperlucency and hyperinflation especially of the upper lungs , suggesting sequelae of COPD. Heart size is normal and central vasculature is within normal limits. No pleural effusion or pneumothorax seen. No acute bony finding noted. IMPRESSION: No acute cardiopulmonary process.
[2023-11-29] MEDS ORDERED: LIDOCAINE 1% MPF 5 ML VIAL ONE (08:45)
[2023-11-29 08:53] LABS: Absolute Eosinophils 0.1 K/uL (0-0.5); Absolute Lymphocytes (CBC) 2.8 K/uL (0.7-4.9); Absolute Monocytes 0.4 K/uL (0.1-1.3); Basophils % 0.5 % (0-1.3); Hematocrit 41.3 % (36.0-45.0); Lymphocytes % 38.1 % (15.3-44.8); MCH 31.5 pg (27.0-35.0); MCHC 33.8 g/dL (32.0-36.0); MCV 93.2 fL (80-100); MPV 8.4 fL (7.6-11.3); Monocytes % 5.6 % (3.3-12.3); Neutrophils % 54.8 % (41.7-73.7); Platelets 236 thou/uL (152-406); RBC Red Blood Cell Count 4.43 M/uL (3.86-4.86); Red Cell Distribution Width 13.5 % (12.1-15.2)
[2023-11-29] MEDS: Ringers Lactate 1,000 ML IV ONE (08:56)
[2023-11-29 09:03] LABS: Anion Gap 7.6 mEq/L (5.0-15.0); Potassium 3.6 mEq/L (3.5-5.1)
[2023-11-29] MEDS ORDERED: EPHEDRINE SULF 50 MG/ML VIAL ONE (09:06)
[2023-11-29] MEDS: CEFAZOLIN SODIUM 1 GM/VIAL ONE (09:15)
[2023-11-29] MEDS ORDERED: dexAMETHasone 10 MG/ML VIAL ONE (09:15)
[2023-11-29] MEDS ORDERED: ROCURONIUM 50 MG/5 ML VIAL IV ONE (09:22)
[2023-11-29] MEDS ORDERED: NEOSTIGMINE 1 MG/ML -10 ML VIAL ONE (10:04)
--- NOTE | 2023-11-29 10:11 | P.BOP ---
Preoperative diagnosis: tender subQ mass L upper back, right buttock, lower lip Postoperative diagnosis: same Primary procedure: Excisional biopsy tender subQ mass 1. Left upper back 3x3cm Secondary procedure: 2. right buttock 4x3cm , 3. lower lip 1x1cm Estimated blood loss: <10cc Specimen: mass x 3 Findings: masses Anesthesia: General Complications: None Transferred to: Recovery Room Condition: Good
[2023-11-29] MEDS: KETOROLAC 30 MG/ML INJ ONE (10:35)
[2023-11-29 11:43] VITALS: BP 138/80; TEMP 97; O2SAT 100
--- NOTE | 2023-11-29 16:31 | EKG ---
Test Date: 2023-11-29 Test Time: 08:31:29 Harvester Operator: CATALINO MEASUREMENT RESULTS: Intervals: Rate: 74 MO: 158 QRSD: 68 QT: 380 QTc: 421 [place]: P: 67 MO: 158 QRS: 30 T: 59 INTERPRETIVE STATEMENTS: Normal sinus rhythm Low voltage QRS Borderline ECG No previous ECG available for comparison Electronically Signed On 11-29-23 16:30:36 CDT by Sd Collins
--- NOTE | 2023-11-29 20:35 | DS ---
Date of Discharge: 11/29/2023 Diagnosis: Tender subcutaneous mass, left upper back, right buttocks, and lower lip. Procedure: Excisional biopsy of tender subcutaneous masses, left upper back, right buttocks, and low er lip. Condition: Stable. Disposition: Home. Activity: As tolerated. No heavy lifting. Followup: Follow up in my office in 1 week. Call for appointment at [phone]. Discharge Instructions: Keep area dry and clean until she us again. SALVADOR/SERGIO Voice ID: [id number] Report ID: [id number]
--- NOTE | 2023-11-29 20:35 | OP ---
Date of Procedure: 11/29/2023 Surgeon: Aditya Ybarra MD Preoperative Diagnoses: Tender subcutaneous mass, left upper back, right buttock, and lower lip. Postoperative Diagnoses: Tender subcutaneous mass, left upper back, right buttock, and lower lip. Procedure: Excisional biopsy of tender subcutaneous mass: 1.Left upper back 3 x 3 cm. 2.Right buttocks 4 x 3 cm. 3.Lower lip 1 x 1 cm. Estimated Blood Loss: Less than 10 cc. Specimen: Mass x3. Findings: Masses, subcutaneous. Anesthesia: General plus local. Indication: This is the case of a female, who came to us with 3 masses giving her pain and discomfor t, redness, sometimes trying to drain. It was again infected on and off, and she right now noticed t hat there is no redness, but it is tender and the mass was still present. She wants that excised bef ore once again going to the infection process. The benefits, alternatives, and risks of excision ful ly explained, which include, but not limited to, infection, bleeding, damage to adjacent structures, anesthesia complication, recurrence, OK, and even . She also understands this may not relieve a ny symptoms. She might need more than one surgical intervention. She understood, signed a consent. We marked the areas of concern, me and the patient in the holding room. Description Of Procedure: The patient was brought to the operating room, placed in supine position. Anesthesia was done without complication. Then the patient was placed in lateral decubitus position with proper protection. Each area was prepped and draped in a sterile fashion individually. A time -out was called. Then, we started with the buttock region. A wedge incision was made in the skin si nce the skin had some openings. It looked like a cyst in the past. So, incision was carried down to deep subcutaneous tissue. Mass was excised. The area was irrigated. Then, we proceeded to close t his deep layers with the 0 chromic and 3-0 chromic and then the skin with 3-0 nylon after hemostasis, irrigation and local anesthesia was applied. Then, we went to the back area and we did the same siddharth hnique. We had the same findings and the same closure. Then, after that, we went into the lower lip region. In that area, we did not have to use 3-0 chromic. We just used 3-0 nylon for a closure. T he rest of the steps are the same. The patient tolerated each procedure well. Patient was covered w ith sterile dressings. Patient was sent to recovery in stable condition. RANJIT Voice ID: [id number] Report ID: [id number]
== END 2023-11-29 11:28 | disposition home or self-care (01) ==
LOC: OR 07:59
PROVIDERS: ATTEND Surgery
PROC: 0CB10ZX Excision of Lower Lip, Open Approach, Diagnostic (ICD-10-PCS; 2023-11-29)
PROC: 0JB90ZZ Excision of Buttock Subcutaneous Tissue and Fascia, Open Approach (ICD-10-PCS; 2023-11-29)
PROC: 0JB70ZZ Excision of Back Subcutaneous Tissue and Fascia, Open Approach (ICD-10-PCS; principal; 2023-11-29 09:00)
DX: L72.0 Epidermal cyst (principal); L57.0 Actinic keratosis; F41.9 Anxiety disorder, unspecified; F32.A Depression, unspecified; M19.90 Unspecified osteoarthritis, unspecified site; E78.00 Pure hypercholesterolemia, unspecified; R56.9 Unspecified convulsions; B19.20 Unspecified viral hepatitis C without hepatic coma; R22.0 Localized swelling, mass and lump, head
CPT/HCPCS: 11403; 11404; 11441; 93005; 85025; 80048; 36415; 88304; 88305; 71046; J2704; J2710; J2001 ×2; J2250; J3010; J1100; J2405; J7120; J0690

== ENCOUNTER 2024-03-18 06:54 | Day surgery (SDC) | payer MEDICARE ==
[2024-03-18 07:24] LABS: Absolute Eosinophils 0.1 K/uL (0-0.5); Absolute Lymphocytes (CBC) 2.7 K/uL (0.7-4.9); Absolute Monocytes 0.5 K/uL (0.1-1.3); Absolute Neutrophil 3.9 K/uL (1.8-8.0); Basophils % 0.6 % (0-1.3); Eosinophils % 1.1 % (0-4.4); Hematocrit 40.7 % (36.0-45.0); Hemoglobin 14.4 g/dL (12.0-15.0); Lymphocytes % 37.4 % (15.3-44.8); MCH 32.7 pg (27.0-35.0); MCHC 35.4 g/dL (32.0-36.0); MCV 92.5 fL (80-100); MPV 7.6 fL (7.6-11.3); Monocytes % 6.6 % (3.3-12.3); Neutrophils % 54.3 % (41.7-73.7); Nucleated Red Blood Cells % 0.1 % (0-0); Platelets 270 thou/uL (152-406); RBC Red Blood Cell Count 4.39 M/uL (3.86-4.86)
[2024-03-18] MEDS: Ringers Lactate 1,000 ML IV ONE (07:25)
[2024-03-18 07:35] LABS: Anion Gap 9.4 mEq/L (5.0-15.0); Potassium 3.4 mEq/L (3.5-5.1)
[2024-03-18] MEDS ORDERED: LIDOCAINE 1% MPF 5 ML VIAL ONE (08:08)
[2024-03-18] MEDS ORDERED: propofoL 200 MG/20 ML VIAL IV ONE (08:08)
[2024-03-18] MEDS ORDERED: MIDAZOLAM HCL 2 MG/2 ML INJ ONE (08:08)
[2024-03-18 09:48] VITALS: O2SAT 100
[2024-03-18 10:02] VITALS: BP 111/76; TEMP 96.9
== END 2024-03-18 10:14 | disposition home or self-care (01) ==
LOC: OR 06:54
PROVIDERS: ATTEND Surgery
PROC: 0DBM8ZX Excision of Descending Colon, Via Natural or Artificial Opening Endoscopic, Diagnostic (ICD-10-PCS; 2024-03-18)
PROC: 0DBK8ZX Excision of Ascending Colon, Via Natural or Artificial Opening Endoscopic, Diagnostic (ICD-10-PCS; principal; 2024-03-18 08:30)
DX: Z12.11 Encounter for screening for malignant neoplasm of colon (principal); Z86.010 Personal history of colon polyps; D12.2 Benign neoplasm of ascending colon; D12.4 Benign neoplasm of descending colon; F41.9 Anxiety disorder, unspecified; F32.A Depression, unspecified; I10 Essential (primary) hypertension; R10.9 Unspecified abdominal pain; R14.0 Abdominal distension (gaseous)
CPT/HCPCS: 85025; 80048; 36415; 88305; 45384; J2704; J2001; J2250; J7120

== ENCOUNTER 2024-04-26 12:58 | Emergency (ER) | payer MEDICARE ==
--- NOTE | 2024-04-26 13:59 | RAD REPORT ---
EXAMINATION: CT HEAD WITHOUT CONTRAST CT CERVICAL SPINE WITHOUT CONTRAST CLINICAL INDICATION: Female, 63 years old. nausea, neck pain;Dizziness TECHNIQUE: Axial CT images from the skull base to the vertex without intravenous contrast. Axial CT i mages through the cervical spine were obtained without intravenous contrast. Sagittal and coronal reformatted images were created from the data set. Coronal and sagittal reformatted images were creat ed from the data set. One or more of the following dose reduction techniques were used: Automated exposure control, adjustment of the mA and/or kV according to patient size, and/or iterative reconstr uction. Unless otherwise specified, incidental findings do not require dedicated imaging follow-up. [id number]. COMPARISON: No prior exam. FINDINGS: Head: INTRACRANIAL: No acute intracranial hemorrhage. No hydrocephalus. No mass effect or midline shift. No significant white matter disease. VASCULATURE: No visualized abnormalities in the arteries or dural venous sinuses. SCALP/SKULL: No significant soft tissue or osseous abnormalities. SINUSES: The visualized paranasal sinuses and mastoid air cells are predominantly clear. Cervical spine: ALIGNMENT: The cervical spine has normal alignment without scoliosis or spondylolisthesis. BONE: Vertebral body heights are maintained. No aggressive osseous lesions. DEGENERATIVE CHANGES: Mild multilevel cervical spondylosis with evidence of bilateral neural foramina l narrowing. No high-grade central spinal stenosis. SOFT TISSUE: Emphysema in the lung apices. IMPRESSION: No acute intracranial abnormality. No acute fracture or traumatic malalignment of the cervical spine.
--- NOTE | 2024-04-26 14:01 | RAD REPORT ---
EXAMINATION: ONE VIEW CHEST XR CLINICAL INDICATION: Female, 63 years old.dizziness TECHNIQUE: 1 View, AP supine, X-ray of the chest was performed. [id number]. COMPARISON: No prior exam. FINDINGS: Lungs and pleura: Clear lungs. No effusion. Heart and mediastinum: Normal heart size. Unremarkable mediastinal contours. Osseous structures: No acute abnormality. Tubes/lines: None Other: None. IMPRESSION: No acute intrathoracic abnormality.
[2024-04-26 14:03] LABS: Absolute Basophils 0.1 K/uL (0-0.5); Absolute Eosinophils 0.1 K/uL (0-0.5); Absolute Lymphocytes (CBC) 3.1 K/uL (0.7-4.9); Absolute Monocytes 0.7 K/uL (0.1-1.3); Absolute Neutrophil 4.8 K/uL (1.8-8.0); Basophils % 0.7 % (0-1.3); Eosinophils % 1.2 % (0-4.4); Hematocrit 41.4 % (36.0-45.0); Hemoglobin 14.5 g/dL (12.0-15.0); Lymphocytes % 35.4 % (15.3-44.8); MCH 32.9 pg (27.0-35.0); MCV 94.1 fL (80-100); MPV 7.5 fL (7.6-11.3); Monocytes % 7.4 % (3.3-12.3); Neutrophils % 55.3 % (41.7-73.7); Nucleated Red Blood Cells % 0.1 % (0-0); Platelets 237 thou/uL (152-406); Red Cell Distribution Width 12.9 % (12.1-15.2)
[2024-04-26] MEDS ORDERED: NA CHLORIDE 0.9% 500 ML ONE (14:09)
[2024-04-26] MEDS ORDERED: MECLIZINE HCL 12.5 MG TAB ONE (14:09)
[2024-04-26] MEDS ORDERED: METOCLOPRAMIDE 10 MG/2mL INJ ONE (14:09)
[2024-04-26 14:21] LABS: ALT/SGPT 15 U/L (13-56); AST/SGOT 11 U/L (15-37); Albumin 3.5 g/dL (3.4-5.0); Albumin/Globulin Ratio 0.9 (1.1-1.8); Alkaline Phosphatase 69 U/L (45-117); Anion Gap 6.7 mEq/L (5.0-15.0); BUN Blood Urea Nitrogen 12 mg/dL (7-18); Bicarbonate 30 mEq/L (21-32); Bilirubin Direct < 0.2 mg/dL (0-0.2); Bilirubin Indirect, Calculated 0.1 mg/dL (0.2-0.8); Bilirubin Total 0.3 mg/dL (0.2-1.0); Globulin 3.9 g/dL (2.3-3.5); Glomerular Filtration Rate 74 ml/min (=/>90); Glucose Level 77 mg/dL (74-106); Magnesium 2.1 mg/dL (1.6-2.4); Potassium 3.7 mEq/L (3.5-5.1); Protein, Total 7.4 g/dL (6.4-8.2); Sodium Level 140 mEq/L (136-145); Troponin High Sensitivity < 3.0 pg/mL (<58.9)
[2024-04-26 14:36] LABS: Specific Gravity 1.007 (1.005-1.030); Sqamous Epithelial <5 /HPF (None Seen); Urine Bacteria <20 /HPF (<20); Urine Bilirubin NEGATIVE (Negative); Urine Blood Negative (Negative); Urine Clarity Turbid (Clear); Urine Color Colorless (Yellow); Urine Crystals Unidentified Few /HPF (None Seen); Urine Culture Reflex Order NOT NEEDED; Urine Glucose NEGATIVE (Negative); Urine Ketones NEGATIVE (Negative); Urine Microscopic Reflex YN ORDER UMIC; Urine Nitrite NEGATIVE (Negative); Urine Protein NEGATIVE (Negative); Urine RBC <5 /HPF (None Seen); Urine Urobilinogen Normal (Normal); Urine WBC <5 /HPF (<5); Urine Yeast (Budding) Trace /HPF (None Seen); Urine pH 5.5 (5.0-7.0)
--- NOTE | 2024-04-26 17:42 | RAD REPORT ---
EXAMINATION: CTA HEAD CLINICAL INDICATION: Female, 63 years old. DIZZINESS TECHNIQUE: Axial CT images were obtained through the head after intravenous contrast utilizing angiog raphic protocol with 3D post-processing (maximum intensity projection images, volume rendered images and/or shaded surface rendered images). One or more of the following dose reduction technique s were used: Automated exposure control, adjustment of the mA and/or kV according to patient size, and/or iterative reconstruction. Unless otherwise specified, incidental findings do not require dedic ated imaging follow-up. COMPARISON: No prior exam. FINDINGS: ICA: The petrous, cavernous, and supraclinoid segments of the bilateral internal carotid arteries are normal. The ophthalmic artery origins are visualized and normal. The posterior communicating arteries are patent. WENDY: Anterior cerebral arteries are normal bilaterally. The anterior communicating artery is patent. MCA: Middle cerebral arteries are normal bilaterally. PIPE STEM ALIGNER: Posterior cerebral arteries are normal bilaterally. Vertebrobasilar: The vertebral arteries are patent. The basilar artery is normal in appearance. 3D images confirm these findings. IMPRESSION: No occlusion, aneurysm, or hemodynamically significant stenosis identified.
--- NOTE | 2024-04-26 17:45 | RAD REPORT ---
EXAMINATION: CTA NECK CLINICAL INDICATION: Female, 63 years old. dizziness TECHNIQUE: Axial CT images were obtained from the aortic arch to the skull base after intravenous con trast utilizing angiographic protocol with 3D post-processing (maximum intensity projection images, volume rendered images and/or shaded surface rendered images). One or more of the following dose redu ction techniques were used: Automated exposure control, adjustment of the mA and/or kV according to patient size, and/or iterative reconstruction. Unless otherwise specified, incidental findings do not require dedicated imaging follow-up. [id number]. NASCET criteria used. Mild 0-49% stenosis Moderate 50-69% stenosis Severe 70-99% stenosis COMPARISON: No prior exam. FINDINGS: AORTA: The imaged aortic arch is normal. CCA: The common carotid arteries are patent and normal in caliber. ICA/ECA: Bilateral internal and external carotid arteries are patent. There is no significant interna l carotid artery stenosis. Where applicable, degree of stenosis is measured using NASCET-like criteria. VERTEBRAL: The cervical vertebral arteries are patent and codominant. SOFT TISSUE: No significant neck soft tissue abnormalities. The visualized lung apices are clear. 3D images confirm these findings. IMPRESSION: Normal neck CTA.
--- NOTE | 2024-04-26 18:12 | EDPHYS ---
Physician Documentation [facility] Name: Nidhi Armstrong Age: 63 yrs Sex: Female : 1960 Arrival Date: 04/26/2024 Time: 12:58 Bed 17 Private MD: ED Physician Jasbir Hall HPI: 04/26 13:35 This 63 yrs old Female presents to ER via Ambulatory with complaints of Dizziness, cp Nausea, Doesn't Feel Right. 13:35 The patient presents with dizziness, feeling faint, lightheadedness, feeling off cp balance. Onset: The symptoms/episode began/occurred 6 day(s) ago. 13:35 Associated signs and symptoms: Pertinent positives: headache, nausea, near-syncope, cp fatigue, general weakness, reports "not feeling well", Pertinent negatives: abdominal pain, chest pain, focal weakness, head injury, palpitations, syncope, vomiting. Patient's baseline: Neuro: alert and fully oriented, Motor: no deficits, Ambulation: walks without assistance, Speech: normal. Historical: - Allergies: 13:29 Codeine; aa5 13:29 Demerol; aa5 13:29 Dilaudid; aa5 13:29 Morphine; aa5 13:29 Risperdal; aa5 13:29 "all pain medication"; aa5 - PMHx: 13:29 chronic back pain; Chronic obstructive lung disease; aa5 13:31 thyroid problem; Seizure; schizoeffective disorder; aa5 - Immunization history:: Adult Immunizations unknown. - Infectious Disease History:: Denies. - Social history:: Smoking status: Patient reports the use of cigarette tobacco products. ROS: 13:40 Constitutional: Negative for fever, poor PO intake, cp 13:40 Eyes: Negative for injury, pain, redness, and discharge, cp 13:40 ENT: Negative for drainage from ear(s), ear pain, sore throat, difficulty swallowing, difficulty handling secretions, 13:40 Cardiovascular: Negative for chest pain, edema, palpitations, 13:40 Respiratory: Negative for cough, shortness of breath, wheezing, 13:40 Abdomen/GI: Positive for nausea, Negative for abdominal pain, vomiting, diarrhea, constipation, 13:40 Neuro: Positive for dizziness, near syncope, weakness, Negative for altered mental status, numbness, speech changes, syncope, 13:40 All other systems are negative, Exam: 13:45 Constitutional: The patient appears in no acute distress, alert, awake, cp non-diaphoretic, non-toxic, well developed, well nourished, 13:45 Head/Face: Normocephalic, atraumatic. cp 13:45 Eyes: Periorbital structures: appear normal, Pupils: equal, round, and reactive to light and accomodation, Extraocular movements: intact throughout, Conjunctiva: normal, no exudate, no injection, Sclera: no appreciated abnormality, Lids and lashes: appear normal, bilaterally, 13:45 ENT: External ear(s): are unremarkable, Ear canal(s): are normal, clear, TM's: dullness, bilaterally, Nose: is normal, Mouth: Lips: moist, Oral mucosa: pink and intact, moist, Posterior pharynx: is normal, airway is patent, no erythema, no exudate, 13:45 Neck: ROM/movement: pain, that is mild, with any movement, limited range of motion, is not appreciated, nuchal rigidity, is not appreciated, 13:45 Chest/axilla: Inspection: normal, 13:45 Cardiovascular: Rate: normal, Rhythm: regular, Edema: is not appreciated, JVD: is not appreciated, 13:45 Respiratory: the patient does not display signs of respiratory distress, Respirations: normal, no use of accessory muscles, no retractions, labored breathing, is not present, Breath sounds: are clear throughout, no decreased breath sounds, no stridor, no wheezing, 13:45 Abdomen/GI: Inspection: abdomen appears normal, Palpation: abdomen is soft and non-tender, in all quadrants, 13:45 Back: pain, is absent, ROM is normal, CVA tenderness, is absent, 13:45 Neuro: Orientation: to person, place \\T\\ time. Mentation: is normal, Cerebellar function: is grossly normal, Motor: moves all fours, no focal deficits, Sensation: no obvious gross deficits, 14:12 ECG was reviewed by the Attending Physician. cp Vital Signs: 13:28 BP 139 / 81; Pulse 76; Resp 16 S; Temp 97.5(TE); Pulse Ox 96% on R/A; aa5 17:00 BP 139 / 73; Pulse 78; Resp 18; Pulse Ox 98% on R/A; ll1 18:21 BP 148 / 77; Pulse 71; Resp 17; Pulse Ox 98% ; ll1 MDM: 13:28 Medical Screening Exam initiated 18:10 Data reviewed: vital signs, nurses notes, lab test result(s), EKG, radiologic studies, cp CT scan, plain films, and as a result, I will discharge patient. 18:10 I considered the following discharge prescriptions or medication management in the emergency department Medications were administered in the Emergency Department. See MAR. Independent interpretation of the following test(s) in the Emergency Department EKG: See my EKG interpretation above. 04/26 13:30 Order name: Urinalysis w/ reflexes; Complete Time: 16:25 04/26 16:25 Interpretation: Normal except: [facility] Turbid; BYST Trace. 04/26 13:30 Order name: Basic Metabolic Panel; Complete Time: 16:25 04/26 16:25 Interpretation: GFR 74; Reviewed. 04/26 13:30 Order name: CBC with Diff; Complete Time: 14:14 04/26 14:14 Interpretation: Normal except: MPV 7.5. 04/26 13:30 Order name: LFT's; Complete Time: 16:25 04/26 13:30 Order name: Magnesium; Complete Time: 16:25 04/26 13:30 Order name: Troponin HS; Complete Time: 16:25 04/26 13:30 Order name: XRAY Chest (1 view); Complete Time: 14:14 04/26 14:15 Interpretation: Report review. 04/26 13:30 Order name: CT Head C Spine; Complete Time: 14:14 04/26 14:15 Interpretation: Reviewed report. 04/26 16:26 Order name: CT Neck Angio; Complete Time: 17:54 04/26 17:55 Interpretation: Report reviewed. 04/26 17:06 Order name: Head angio; Complete Time: 17:54 EDNC 04/26 17:55 Interpretation: Report reviewed. 04/26 13:30 Order name: Cardiac monitoring; Complete Time: 14:04 04/26 13:30 Order name: EKG - Nurse/Tech; Complete Time: 14:04 04/26 13:30 Order name: IV Saline Lock; Complete Time: 13:54 04/26 13:30 Order name: Labs collected and sent; Complete Time: 13:54 cp 04/26 13:30 Order name: O2 Per Protocol; Complete Time: 13:46 cp 04/26 13:30 Order name: O2 Sat Monitoring; Complete Time: 13:46 cp 04/26 18:10 Order name: PO challenge; Complete Time: 18:15 cp EC:12 Rate is 72 beats/min. Rhythm is regular. ND interval is normal. QRS interval is normal. cp QT interval is normal. T waves are Inverted in lead aVR. Interpreted by me. Reviewed by me. Administered Medications: 14:16 Drug: Meclizine PO 25 mg PO once Route: PO; ll1 14:58 Follow up: Response: No adverse reaction ll1 14:16 Drug: metoCLOPramide IVP 10 mg IVP once; over 1 to 2 minutes Route: IVP; Site: right ll1 antecubital; 14:58 Follow up: Response: No adverse reaction; Nausea is decreased ll1 14:16 Drug: NS 0.9% IV 500 ml 500 ml IV at 1 bolus once; to be given as a bolus over 30 ll1 minutes Volume: 500 ml; Route: IV; Rate: 1 bolus; Site: right antecubital; 14:59 Follow up: Response: No adverse reaction; IV Status: Completed infusion; IV Intake: ll1 500ml Disposition Summary: 04/26/24 18:11 Discharge Ordered Notes: Location: Home cp Problem: new cp Symptoms: have improved cp Condition: Stable cp Diagnosis - Dizziness and giddiness cp - Nausea cp Followup: cp - With: Private Physician - When: 2 - 3 days - Reason: Recheck today's complaints Discharge Instructions: - Discharge Summary Sheet cp - Dizziness cp - Nausea, Adult cp Forms: - Medication Reconciliation Form cp - Antibiotic Education cp - Prescription Opioid Use cp - Patient Portal Instructions cp - Leadership Thank You Letter cp Prescriptions: - Meclizine 25 mg Oral Tablet - take 1 tablet ORAL route every 8 hours As needed; 30 tablet; Refills: 0, cp Product Selection Permitted - Zofran 4 mg Oral Tablet - take 1 tablet ORAL route every 12 hours As needed; 20 tablet; Refills: 0, cp Product Selection Permitted Signatures: Dispatcher [employer] Shira Franklin RN RN aa5 PageMehdi PA PA cp Lewis, Lynsay, RN RN ll1 Corrections: (The following items were deleted from the chart) 13:30 13:29 PMHx: TIA; aa5 aa5 13:30 13:29 PMHx: TIA; aa5 aa5 13:31 13:30 Urinalysis+U.LAB.BRZ ordered. EDMS EDMS 13: 13:30 BASIC METABOLIC PANEL+C.LAB.BRZ ordered. EDMS EDMS 13: 13:30 CBC+H.LAB.BRZ ordered. EDMS EDMS 13: 13:30 HEPATIC FUNCTION+C.LAB.BRZ ordered. EDMS EDMS 13: 13:30 MAGNESIUM+C.LAB.BRZ ordered. EDMS EDMS 13: 13:30 Troponin High Sensitivity+C.LAB.BRZ ordered. EDMS EDMS 13: 13:31 Chest Single View+RAD.RAD.BRZ ordered. EDMS EDMS 13: 13:31 Head C Spine MPR Wo Con+CT.RAD.BRZ ordered. EDMS EDMS
--- NOTE | 2024-04-26 18:12 | ER ---
Nurse's Notes [facility] Name: Nidhi Armstrong Age: 63 yrs Sex: Female : 1960 Arrival Date: 04/26/2024 Time: 12:58 Bed 17 Private MD: Diagnosis: Dizziness and giddiness;Nausea Presentation: 04/26 13:28 Chief complaint: Patient states: dizziness and nausea that began 6 days ago. aa5 13:28 Coronavirus screen: At this time, the client does not indicate any symptoms associated aa5 with coronavirus-19. Ebola Screen: Patient denies travel to an Ebola-affected area in the 21 days before illness onset. Initial Sepsis Screen: Does the patient meet any 2 criteria? No. Patient's initial sepsis screen is negative. Does the patient have a suspected source of infection? No. Patient's initial sepsis screen is negative. Risk Assessment: Do you want to hurt yourself or someone else? Patient reports no desire to harm self or others. Onset of symptoms was March 2024. 13:28 Acuity: ALINA 3 aa5 13:28 Method Of Arrival: Ambulatory aa5 Historical: - Allergies: 13:29 Codeine; aa5 13:29 Demerol; aa5 13:29 Dilaudid; aa5 13:29 Morphine; aa5 13:29 Risperdal; aa5 13:29 "all pain medication"; aa5 - PMHx: 13:29 chronic back pain; Chronic obstructive lung disease; aa5 13:31 thyroid problem; Seizure; schizoeffective disorder; aa5 - Immunization history:: Adult Immunizations unknown. - Infectious Disease History:: Denies. - Social history:: Smoking status: Patient reports the use of cigarette tobacco products. Screenin:41 [facility] ED Fall Risk Assessment (Adult) History of falling in the last 3 months, ll1 including since admission No falls in past 3 months (0 pts) Confusion or Disorientation No (0 pts) Intoxicated or Sedated No (0 pts) Impaired Gait Yes (1 pt) Mobility Assist Device Used No (0 pt) Altered Elimination No (0 pt) Score/Fall Risk Level 0 - 2 = Low Risk Maintained a safe environment, Hourly rounding (assess needs \\T\\ fall precautionary measures) done. Abuse screen: Denies threats or abuse. Nutritional screening: No deficits noted. Tuberculosis screening: No symptoms or risk factors identified. Assessment: 14:16 Reassessment: No changes from previously documented assessment. ll1 14:59 General: Appears uncomfortable, Behavior is calm, cooperative, appropriate for age. ll1 Pain: Complains of pain in head. Neuro: Reports dizziness, headache weakness. GI: Reports nausea. 17:28 Reassessment: No changes from previously documented assessment. Patient and/or family ll1 updated on plan of care and expected duration. Pain level reassessed. Patient is alert, oriented x 3, equal unlabored respirations, skin warm/dry/pink. 17:40 Reassessment: No changes from previously documented assessment. Back from CT. ll1 18:20 Reassessment: No changes from previously documented assessment. Patient and/or family ll1 updated on plan of care and expected duration. Pain level reassessed. Patient is alert, oriented x 3, equal unlabored respirations, skin warm/dry/pink. Patient states feeling better. Patient states symptoms have improved. 18:23 GI: Abdomen is flat. ll1 Vital Signs: 13:28 BP 139 / 81; Pulse 76; Resp 16 S; Temp 97.5(TE); Pulse Ox 96% on R/A; aa5 17:00 BP 139 / 73; Pulse 78; Resp 18; Pulse Ox 98% on R/A; ll1 18:21 BP 148 / 77; Pulse 71; Resp 17; Pulse Ox 98% ; ll1 ED Course: 13:00 Patient arrived in ED. mg5 13:14 Mehdi Luis PA is PHCP. cp 13:14 Jasbir Hall MD is Attending Physician. cp 13:28 Arm band placed on. aa5 13:31 Triage completed. aa5 13:43 Patient placed in an exam room, on a stretcher. ll1 13:45 Sarah Bello, VALERIY is Primary Nurse. ll1 13:50 CT Head C Spine In Process Unspecified. EDMS 13:50 Provided Education on: ER procedures and process. ll1 13:51 XRAY Chest (1 view) In Process Unspecified. EDMS 14:04 Inserted saline lock: 22 gauge in right antecubital area, using aseptic technique. ll1 Blood collected. Flushed with 10 mL NS. 14:04 Initial lab(s) drawn, by me, sent to lab. ll1 14:15 EKG done, by ED staff, reviewed by Mehdi CASTRO. em1 17:38 CT Neck Angio In Process Unspecified. EDMS 17:38 Head angio In Process Unspecified. EDMS 17:42 Patient has correct armband on for positive identification. Bed in low position. ll1 18:23 No provider procedures requiring assistance completed. IV discontinued, intact, ll1 bleeding controlled, No redness/swelling at site. Pressure dressing applied. Administered Medications: 14:16 Drug: Meclizine PO 25 mg PO once Route: PO; ll1 14:58 Follow up: Response: No adverse reaction ll1 14:16 Drug: metoCLOPramide IVP 10 mg IVP once; over 1 to 2 minutes Route: IVP; Site: right ll1 antecubital; 14:58 Follow up: Response: No adverse reaction; Nausea is decreased ll1 14:16 Drug: NS 0.9% IV 500 ml 500 ml IV at 1 bolus once; to be given as a bolus over 30 ll1 minutes Volume: 500 ml; Route: IV; Rate: 1 bolus; Site: right antecubital; 14:59 Follow up: Response: No adverse reaction; IV Status: Completed infusion; IV Intake: ll1 500ml Medication: 17:42 VIS not applicable for this client. ll1 Intake: 14:59 IV: 500ml; Total: 500ml. ll1 Outcome: 18:11 Discharge ordered by MD. cp 18:23 Discharged to home ambulatory, ll1 18:23 Condition: stable 18:23 Discharge instructions given to patient, Instructed on discharge instructions, follow up and referral plans. medication usage, Demonstrated understanding of instructions, follow-up care, medications, Prescriptions given X 2, 18:23 Patient left the ED. ll1 Signatures: Dispatcher [employer] EDMS Tonny Ybarra em1 Shira Alonzo, RN RN aa5 Mehdi Luis PA PA cp Lewis, Lynsay RN RN ll1 Rabia Osorio mg5 Corrections: (The following items were deleted from the chart) 13:30 13:29 PMHx: TIA; aa5 aa5 13:30 13:29 PMHx: TIA; aa5 aa5 13:31 13:28 Chief complaint: aa5 aa5 18:22 17:28 BP 116 / 71; Pulse 88bpm; Resp 18bpm; Pulse Ox 98% RA; ll1 ll1
[2024-04-26 19:17] VITALS: TEMP 97.5
[2024-04-26 19:23] VITALS: O2SAT 98
[2024-04-26 19:28] VITALS: BP 148/77
--- NOTE | 2024-04-29 12:19 | EKG ---
Test Date: 2024-04-26 Test Time: 14:05:01 Assistant At Surgery: ERIKA MEASUREMENT RESULTS: Intervals: Rate: 72 DE: 162 QRSD: 72 QT: 390 QTc: 427 [place]: P: 80 DE: 162 QRS: 61 T: 79 INTERPRETIVE STATEMENTS: Normal sinus rhythm Low voltage QRS Borderline ECG Compared to ECG 11/29/2023 08:31:29 No significant changes Electronically Signed On 04-29-24 12:16:17 [employer] by Sd Collins
== END 2024-04-26 18:23 | disposition home or self-care (01) ==
LOC: ER 12:58
DX: R42 Dizziness and giddiness (principal); R11.0 Nausea; R53.83 Other fatigue; R53.1 Weakness; R51.9 Headache, unspecified; Z72.0 Tobacco use
CPT/HCPCS: 96361; 85025; 81001; 80048; 36415; 83735; 80076; 84484; 70450; 72125; 70496; 70498; 71045; 96374; 99284; Q9967; J8597; J2765; J7040; 93005